=== PATIENT | female | born 1930 | race Caucasian/White ===

== ENCOUNTER 2017-03-05 20:04 | Observation (INO) | payer MEDICARE, OTHER ==
[2017-03-05] MEDS ORDERED: Albuterol/Ipratropium 3.0-0.5 MG/3 ML Neb Soln NEB ONE (20:22)
[2017-03-05] MEDS ORDERED: methylPREDNISolone Sodium Succinate 125 MG/2 ML SDV IV ONE (20:22)
[2017-03-05] MEDS ORDERED: Sodium Chloride 0.9% 300 ML IV ONE (20:30)
[2017-03-05] MEDS: Sodium Chloride 0.9% 10 ML Syringe FLUSH PRN (20:45)
[2017-03-05 21:20] LABS: CHLORIDE,CL 106 mmol/L (98-107); SODIUM,NA 140 mmol/L (136-145)
[2017-03-05] MEDS ORDERED: Levofloxacin/Dextrose 5%-Water 500 MG in Premix Bag 1 BAG IV ONE (21:37)
[2017-03-05] MEDS ORDERED: Albuterol 0.083% 2.5 MG/3 ML Neb Soln NEB PRN (21:52)
[2017-03-05] MEDS: Albuterol/Ipratropium 3.0-0.5 MG/3 ML Neb Soln NEB SCH (22:34)
[2017-03-06] MEDS: Albuterol/Ipratropium 3.0-0.5 MG/3 ML Neb Soln NEB SCH ×4 (01:20→17:59)
[2017-03-06] MEDS: methylPREDNISolone Sodium Succinate 40 MG/1 ML SDV IVPUSH SCH ×3 (05:04→20:54)
[2017-03-06] MEDS: Sodium Chloride 0.9% 10 ML Syringe FLUSH PRN ×2 (05:06→07:40)
[2017-03-06] MEDS ORDERED: Acetaminophen/HYDROcodone 325-5 MG Tab PO PRN (07:54)
[2017-03-06] MEDS ORDERED: Sodium Chloride 0.9% 1,000 ML IV ONE (08:53)
[2017-03-06] MEDS: Calcium Carbonate 750 MG Tab.Chew PO SCH ×2 (09:03→20:55)
[2017-03-06] MEDS: Docusate Sodium 100 MG Cap PO SCH (09:03)
[2017-03-06] MEDS: Sodium Chloride 0.9% 1,000 ML IV SCH ×2 (09:04→16:31)
[2017-03-06] MEDS: Enoxaparin 30 MG/0.3 ML Syringe SUBCUT SCH (09:09)
--- NOTE | 2017-03-06 10:54 | PN ---
Progress Note for JACQUE ENRIQUEZ Date:03/06/2017 Room #: VM.205 SUBJECTIVE: Randa was hospitalized last evening with community-acquired pneumonia. The patient also has a history of asthma and has been experiencing increased work of breathing and chest tightness. The patient was started on DuoNeb and albuterol breathing treatments, and was started on IV Levaquin. She states that this morning she is feeling about the same. She states that her cough is less productive. She does complain of some mild right anterolateral respirophasic chest discomfort which is new. PHYSICAL EXAMINATION: General: This is an 86-year-old female patient. No acute distress. Vital signs: This morning, blood pressure is 142/73, heart rate is 83, temperature is 36.7, respiratory rate 18, O2 saturations 97% on room air. Skin: Warm, pink, and dry. HEENT: Head is normocephalic, atraumatic. Mouth, oral mucosa is moist. Lungs: Diminished particularly on left side. Heart: Regular rate and rhythm. Abdomen: Soft and nontender. There is no hepatosplenomegaly noted. There is no masses noted. Extremities: Without edema. Neurologic: The patient is alert, oriented. Answers all questions appropriately. Her speech is fluent. Her gait is within normal limits. LABORATORY DATA: Repeat labs today revealed elevation in her lactic acid to 4.5 from 4.3. Her creatinine also elevated to 1.4 from 1.2. Her white count remained stable at 5.5. Her electrolytes all remained within normal limits. ASSESSMENT: Community-acquired pneumonia. PLAN: I am going to start the patient on normal saline at 125 an hour. She does appear to be a bit dehydrated and her labs reflect this as well. Initially was thought that the patient may be discharged this morning, but she will be kept another day. Subsequently, we will start her on Lovenox at 30 mg per day, the renally adjusted dose for DVT prophylaxis. Continue with flutter valve and incentive spirometry. I advised her to ambulate as much as possible to improve tidal volume and subsequently pulmonary toilet. We will reevaluate in the morning to determine if the patient meets criteria for discharge. If not, the patient will be likely made acute. The patient is a full code. MWK: 03/06/2017 09:00:40 MODL: 03/06/2017 10:46:36 /[id number]
[2017-03-06] MEDS ORDERED: Mirtazapine 15 MG Tab PO SCH (20:00)
[2017-03-06] MEDS ORDERED: Pramipexole 0.5 MG Tab PO SCH (20:00)
[2017-03-06] MEDS ORDERED: Aspirin 81 MG Tab.EC PO SCH (20:00)
[2017-03-06] MEDS ORDERED: Carbidopa/Levodopa 10-100 MG Tab PO SCH (20:00)
[2017-03-06] MEDS ORDERED: Levofloxacin/Dextrose 5%-Water 250 MG in Premix Bag 1 BAG IV SCH (20:00)
[2017-03-07] MEDS: Albuterol/Ipratropium 3.0-0.5 MG/3 ML Neb Soln NEB SCH ×2 (01:32→07:20)
[2017-03-07] MEDS: Sodium Chloride 0.9% 1,000 ML IV SCH (01:35)
[2017-03-07] MEDS ORDERED: Omeprazole 20 MG Cap.CR PO SCH ×2 (01:45→20:00)
[2017-03-07] MEDS: methylPREDNISolone Sodium Succinate 40 MG/1 ML SDV IVPUSH SCH (04:57)
[2017-03-07 06:25] VITALS: BP 127/52
[2017-03-07] MEDS: Calcium Carbonate 750 MG Tab.Chew PO SCH (07:57)
[2017-03-07] MEDS: Docusate Sodium 100 MG Cap PO SCH (07:57)
[2017-03-07] MEDS: Enoxaparin 30 MG/0.3 ML Syringe SUBCUT SCH (07:57)
--- NOTE | 2017-03-07 08:32 | DISCH ---
ADMITTING DIAGNOSES: 1. Community-acquired pneumonia. 2. Asthma exacerbation. DISCHARGING DIAGNOSES: 1. Community-acquired pneumonia. 2. Asthma exacerbation. HISTORY: Randa is feeling much better. She was admitted on 03/05/2017 with increased cough and work of breathing. At that time, she was started on IV Levaquin in the emergency room and started on IV Solu-Medrol. She does have a history of asthma and currently does take albuterol for this. She has been receiving DuoNeb and albuterol breathing treatments since being admitted. She has been on IV Solu-Medrol as well since being admitted. She does have a history of stage 3 chronic kidney disease, so her Levaquin dose has been renally adjusted. Overall, she states she is feeling much better and wishes to be discharged home today. Her white count is mildly elevated this morning at 16.9. It was 5.5 yesterday. Her lactic acid, however, is down to 3.7. It was 4.5 yesterday. HOSPITAL COURSE: Again, the patient states she is feeling much better and wishes to be discharged. She states that her cough is minimal and states that it is nonproductive. She has been afebrile. DISCHARGE PHYSICAL EXAMINATION: General: An 86-year-old female patient, in no acute distress. Vital Signs: Blood pressure is 127/52, pulse rate is 83, temperature is 36.9, O2 saturations 95%, respiratory rate is 16. Skin: Warm, pink, and dry. Lungs: Clear throughout. Heart: Regular rate and rhythm. Abdomen: Soft and nontender. There is no hepatosplenomegaly or masses noted. DISCHARGE MEDICATIONS: Continue with home medications. Please see MAR. We will start her on Levaquin 250 mg once daily for 10 days. Also, we will start her on prednisone 40 mg daily for 5 days. Continue with albuterol inhaler 2 puffs every 4-6 hours as needed for cough. Follow up with Yanci Guillen in 5-7 days. MWK: 03/07/2017 07:51:15 MODL: 03/07/2017 08:24:39 /[id number]
--- NOTE | 2017-03-07 08:43 | ER ---
Date of Service: 03/05/2017 SUBJECTIVE: Randa presents to the emergency room with complaints of dyspnea and fatigue. The patient states that she has been experiencing the shortness of breath for approximately 2 weeks. She states that the cough is occasionally productive of yellowish sputum. The patient states that she has not been feeling well. She does have a history of asthma and states that she had previously been on Breo, an inhaled long- acting beta agonists/inhaled corticosteroid, but she states that she was responding poorly to this medication and requested that this medication be stopped. She states that she does have an albuterol inhaler that she has been using every few hours for the dyspnea. The patient states that her cough is productive of yellowish sputum. She denies any hemoptysis. PAST MEDICAL HISTORY: 1. History of pneumonia. 2. Asthma. 3. Chronic constipation. 4. Colon polyps. 5. GERD. 6. Appendectomy. 7. Hysterectomy. 8. Breast lumpectomy. 9. Osteoporosis. 10.Restless legs syndrome. 11.Osteopenia. 12.Anxiety. 13.Depression. MEDICATIONS: 1. Albuterol. 2. Aspirin. 3. Extra-strength Tums. 4. Sinemet. 5. Colace. 6. Remeron. 7. Omeprazole. 8. Mirapex. ALLERGIES: 1. Fish containing products. 2. Atorvastatin. 3. Codeine. 4. Sulfa. REVIEW OF SYSTEMS: General: No fever or chills. HEENT: No sore throat, rhinorrhea or congestion. Respiratory: Positive for shortness of breath and productive cough. Cardiac: Denies any substernal chest pain, but states she is experiencing some chest tightness. GI: No nausea, vomiting, or diarrhea. No melena, hematochezia, or hematemesis. : Denies any dysuria. Musculoskeletal: No myalgias or arthralgias. Neurologic: No fainting, blackouts, or lightheadedness. PHYSICAL EXAMINATION: General: This is an 86-year-old female, who is in no acute distress. Vital signs: Blood pressure is 142/73, heart rate is 83, temp is 36.7, respiratory rate is 18, O2 saturations 93% on room air. Skin: Warm, pink, and dry. HEENT. Head is normocephalic, atraumatic. Eyes, PERRLA. Extraocular movements are intact. Ears, TMs are clear. Mouth, oral mucosa is moist. Lungs: Diminished throughout with mild wheezing. She is diminished primarily in the left lung base. Heart: Regular rate and rhythm. Abdomen: Soft, nontender. There is no hepatosplenomegaly noted. There is no masses noted. Extremities: Without edema. Neurologic: The patient is alert, oriented. Answers all questions appropriately. Her speech is fluent. Her gait is within normal limits. DIAGNOSTIC DATA: EKG was obtained showing no acute ST or T-wave abnormalities. Portable chest x-ray was obtained. She did have evidence of bilateral infiltrates. LABORATORY DATA: WBC is 7.1, hemoglobin is 13.1, platelets are 23. Coag; PT is 9.9, INR is 0.9. Chemistry; sodium is 140, potassium is 3.7, chloride is 106, bicarb is 23, BUN is 11, creatinine is 1.2. Creatinine clearance is 30.92. GFR is 42. Glucose is 184. Lactic acid is 4.3, calcium is 8.9, corrected calcium is 9.3, total bilirubin is 0.3. AST is 16, ALT is 15, alkaline phosphatase is 117. CK-MB is 0.8. Troponin is less than 0.017. C-reactive protein is less than 0.2. BNP is 226. EMERGENCY ROOM COURSE: IV access was established. She was given Levaquin 500 mg IV. She was given Solu-Medrol 125 mg IV and she was given a DuoNeb breathing treatment. She did feel significantly improved after the breathing treatment. She remained stable under my care in the emergency room. ASSESSMENT: 1. Community-acquired pneumonia. 2. Acute asthma exacerbation. PLAN: The patient will be admitted on observation status. She is a code level 1. We will continue with Levaquin starting at 250 mg once daily, Solu-Medrol 40 mg 3 times daily for the asthma exacerbation, DuoNeb breathing treatments 1 every 4 hours on a schedule and albuterol 2.5 mg nebulized every 4-6 hours as needed. I did discuss this case with Carmen Guillen and she felt that the patient could be admitted on observation status. All questions were answered. MWK: 03/06/2017 12:55:19 MODL: 03/06/2017 13:25:13 /[id number]
--- NOTE | 2017-03-10 09:15 | ER ---
Date of Service: 03/05/2017 ADDENDUM: The patient's ER note may be used as her admission H and P. MWK: 03/09/2017 13:05:42 MODL: 03/09/2017 19:25:39 /[id number]
== END 2017-03-07 09:30 | disposition home or self-care (01) ==
LOC: VM.ED 20:04 → INTOOBSV 21:45 → VM.MS 21:45
PROVIDERS: ADMIT Physician Assistant; ATTEND Physician Assistant
DX: J18.9 Pneumonia, unspecified organism (principal); J45.901 Unspecified asthma with (acute) exacerbation; N18.3 Chronic kidney disease, stage 3 (moderate)
CPT/HCPCS: 36415; 71020; 80053; 82550; 82553; 83605; 83880; 84484; 85025; 85027; 85610; 86140; 87040; 93005; 94640; 94760; 96361; 96365; 96366; 96372; 96374; 96375; 96376; 99217; 99220; 99226; 99285; A9270; G0378; J1650; J1956; J2920; J2930; J7030; J7050

== ENCOUNTER 2017-04-28 06:50 | Day surgery (SDC) | payer MEDICARE, OTHER ==
[~2017-04-28 06:50] MED LIST: Lactated Ringers 1,000 ML IV SCH
[2017-04-28] MEDS ORDERED: fentaNYL 100 MCG/2 ML SDV ONE (08:05)
[2017-04-28] MEDS ORDERED: Propofol 200 MG/20 ML SDV ONE (08:05)
--- NOTE | 2017-04-28 10:16 | OR ---
SURGERY DATE: 04/28/2017. REFERRING PROVIDER: Yanci Guillen PA-C. PREOPERATIVE DIAGNOSES: 1. Resistant gastroesophageal reflux disease along with achy epigastric pain. The patient was recently changed from omeprazole to pantoprazole. She is on chronic prednisone as well as aspirin 81 mg daily. 2. 1 episode of dysphagia recently. POSTOPERATIVE DIAGNOSES: 1. About a 3 cm sliding-type hiatal hernia without any evidence of inflammation or stricture. 2. Few scattered gastric polyps, largest being about 1 cm in size which was biopsied multiple times. This was quite soft in nature. 3. Antral biopsies taken for path and H. pylori. PROCEDURES: Esophagogastroduodenoscopy with cold biopsies x2 sites. SURGEON: Jean Marie Gar M.D. ANESTHESIA: Monitored anesthesia care. Randa is an 86-year-old female who was brought to the endoscope suite after discussion of risks and benefits (including but not limited to reaction to medication, bleeding, infection, aspiration, perforation). Informed consent was obtained for monitored anesthesia care and esophagogastroduodenoscopy along with possible biopsy and/or dilatation. Pre-procedure exam including oral cavity was unremarkable. IV, oxygen, and monitors were placed. Patient was placed in the left lateral position and sedation was administered. A bite block was placed gently and scope lightly lubricated and passed through the bite block and over the tongue. Hypopharynx and vocal cords were visualized and unremarkable. Scope was passed through the cricopharynx and into the esophagus. The scope was then passed through the distal esophagus and the GE junction was visualized and photographed. The GE junction was remarkable for about a 3 cm sliding-type hiatal hernia. Vocal cords were visualized and unremarkable. The scope was advanced into the stomach and gastric sullivan was suctioned. Pylorus was identified and intubated and then the scope was advanced to the third portion of the duodenum. The second and third portions of the duodenum were unremarkable. The duodenal bulb was visualized and 2nd and 3rd portions of duodenum were unremarkable. Duodenal bulb visualized unremarkable. The scope was brought back into the stomach. The pylorus and the antrum were unremarkable. Cold biopsy x2 bites was taken from this area to check for H. pylori and sent for path. Biopsies for H. pylori and Path were obtained from antrum. The scope was retroflexed to visualize the angularis, fundus, body, and cardia. These were remarkable for a few scattered gastric polyps, the largest being about 1 cm in size and soft. This was biopsied multiple times and nearly removed completely. The stomach was desufflated of air and then the scope was slowly withdrawn, and the esophagus was closely visualized during withdrawal all the way into the posterior pharynx. In the upper esophagus there was an area of heterotopic type mucosa. Cold biopsy x2 bites was taken of this area and sent for path. The patient tolerated the procedure well and went to recovery in stable condition. The patient was monitored until at baseline status. Findings and discharge instructions were reviewed and the patient was discharged in good condition. COMPLICATIONS: None. TOTAL TIME: 11 minutes. ESTIMATED BLOOD LOSS: About 2 mL. RECOMMENDATIONS/FOLLOW-UP: We will await results of path report to determine the need for any followup. Recommend patient continue on her pantoprazole given her chronic prednisone use as well as aspirin. I would like to kindly thank Yanci Guillen for this referral. DMB: 04/28/2017 09:26:22 MODL: 04/28/2017 10:00:39 /[id number]
[2017-04-28 10:21] VITALS: BP 127/56
== END 2017-04-28 10:35 | disposition home or self-care (01) ==
LOC: VM.SDS 06:50
PROVIDERS: ATTEND Family Medicine
DX: K31.7 Polyp of stomach and duodenum (principal); K44.9 Diaphragmatic hernia without obstruction or gangrene; F43.23 Adjustment disorder with mixed anxiety and depressed mood; E78.5 Hyperlipidemia, unspecified; K21.9 Gastro-esophageal reflux disease without esophagitis; J45.20 Mild intermittent asthma, uncomplicated; Z88.2 Allergy status to sulfonamides; Z88.8 Allergy status to other drugs, medicaments and biological substances; Z91.013 Allergy to seafood; Z79.82 Long term (current) use of aspirin; Z79.2 Long term (current) use of antibiotics; Z79.899 Other long term (current) drug therapy; Z90.49 Acquired absence of other specified parts of digestive tract; Z98.890 Other specified postprocedural states
CPT/HCPCS: 00740; 43239; J2704; J3010; J7120; 88305

== ENCOUNTER 2017-09-10 10:31 | Inpatient (IN) | payer MEDICARE, OTHER ==
[2017-09-10] MEDS ORDERED: Albuterol/Ipratropium 3.0-0.5 MG/3 ML Neb Soln NEB ONE ×2 (10:39→12:30)
[2017-09-10] MEDS ORDERED: Sodium Chloride 0.9% 10 ML Syringe FLUSH PRN ×2 (11:03→13:29)
[2017-09-10] MEDS ORDERED: cefTRIAXone 1 GM Vial IVPUSH ONE ×2 (11:04→11:44)
--- NOTE | 2017-09-10 11:09 | EDM.PDOC ---
ED HPI GENERAL MEDICAL PROBLEM - General Chief Complaint: Respiratory Problem Stated Complaint: FLU LIKE SYMPTOMS Time Seen by Provider: 09/10/17 10:31 Source of Information: Reports: Patient History Limitations: Reports: No Limitations - History of Present Illness INITIAL COMMENTS - FREE TEXT/NARRATIVE: Patient comes into the emergency department with a one-week history of chest congestion, cough, shortness of breath,fatigue, and malaise. She states she has difficulty ambulating because she becomes short of breath very quickly which has just begun in the past 2 days. She has an inhaler that she has at home that she is using frequently (multiple times a day) to help with the congestion, wheezing, and SOB. She states she called the clinic this past week for an appointment and she was told to wait a few more days to ensure it was not a viral etiology. Patient comes in today with worsening of the symptoms. Denies bodyaches, n/v, chest pain, dizziness, lightheadedness (unless she is coughing) , or swollen extremities. Onset: Gradual Onset Date: 09/03/17 Duration: Getting Worse Worsens with: Reports: Movement Associated Symptoms: Reports: Cough, cough w sputum, Loss of Appetite, Malaise, Shortness of Breath, Weakness. Denies: Diaphoresis, Fever/Chills, Nausea/ Vomiting, Syncope - Related Data Allergies Allergy/AdvReac Type Severity Reaction Status Date / Time Fish Containing Products Allergy Nausea Verified 09/10/17 10:58 atorvastatin calcium AdvReac Body Aches Verified 09/10/17 10:58 [From Lipitor] codeine AdvReac Change Verified 09/10/17 10:58 Mental Status Sulfa (Sulfonamide AdvReac Nausea Verified 09/10/17 10:58 Antibiotics) Home Meds: Home Meds Carbidopa/Levodopa [Sinemet 10-100 mg] 1 tab PO BEDTIME 09/10/15 [History] Ibuprofen 400 mg PO Q4HR PRN 09/10/15 [History] Meclizine HCl [Antivert] 25 mg PO Q4HR PRN 09/10/15 [History] Calcium/Magnesium/Zinc [Calcium & Magnesium plus Zinc] 2 tab PO DAILY 03/05/17 [ History] Pramipexole [Mirapex] 1 mg PO DAILY 03/05/17 [History] Propylene Glycol [Systane Balance] 1 drop EYEBOTH ASDIRECTED PRN 03/05/17 [ History] predniSONE 5 mg PO DAILY 03/05/17 [History] Docusate Sodium [Colace] 100 mg PO DAILY 03/06/17 [History] Hydrocodone/Acetaminophen [[place] 5-325] 1 tab PO BEDTIME PRN 03/06/17 [History] Aspirin [Halfprin] 81 mg PO BEDTIME tab.ec 03/07/17 [Rx] Non-Formulary Medication [NF Drug] 1 tab PO DAILY PRN 04/25/17 [History] Albuterol [Ventolin HFA] 2 puff IH Q4H PRN 09/10/17 [History] Mirtazapine [Mirtazapine] 15 mg PO BEDTIME 09/10/17 [History] Omeprazole [Omeprazole] 1 cap PO DAILY 09/10/17 [History] Past Medical History HEENT History: Reports: Cataract, Hard of Hearing, Impaired Vision, Other (See Below) Other HEENT History: lesion of lower eyelid. labyrinthitis Cardiovascular History: Reports: High Cholesterol Respiratory History: Reports: Asthma Other Respiratory History: HX OF PNUEMONIA Gastrointestinal History: Reports: Chronic Constipation, GERD, Other (See Below) Other Gastrointestinal History: taste sense altered. hepatitis A Genitourinary History: Reports: None [employer] History: Reports: None Musculoskeletal History: Reports: Back Pain, Chronic, Osteoarthritis, Other ( See Below) Other Musculoskeletal History: arthralgia of multiple joints. restless leg syndrome. hx right hand numbness. myalgia and myositis Neurological History: Reports: None Psychiatric History: Reports: Anxiety, Depression Endocrine/Metabolic History: Reports: Osteopenia Hematologic History: Reports: None Immunologic History: Reports: None Oncologic (Cancer) History: Reports: Basal Cell Carcinoma, Breast Other Oncologic History: SKIN CA ON BACK Dermatologic History: Reports: None - Past Surgical History Head Surgeries/Procedures: Reports: None HEENT Surgical History: Reports: Cataract Surgery, Tonsillectomy Cardiovascular Surgical History: Reports: None Respiratory Surgical History: Reports: None GI Surgical History: Reports: Appendectomy, Colonoscopy Female Surgical History: Reports: Hysterectomy, Other (See Below) Other Female Surgeries/Procedures: breast lumpectomy Endocrine Surgical History: Reports: Thyroid Biopsy Neurological Surgical History: Reports: None Musculoskeletal Surgical History: Reports: Carpal Tunnel, Other (See Below) Other Musculoskeletal Surgeries/Procedures:: right 3rd digit & left thumb trigger finger release Oncologic Surgical History: Reports: Biopsy of Breast, Lumpectomy Dermatological Surgical History: Reports: None Social & Family History - Family History Family Medical History: Noncontributory - Tobacco Use Smoking Status *Q: Never Smoker Second Hand Smoke Exposure: No - Caffeine Use Caffeine Use: Reports: Coffee - Alcohol Use Days Per Week of Alcohol Use: 0 - Recreational Drug Use Recreational Drug Use: No ED ROS GENERAL - Review of Systems Review Of Systems: See Below Constitutional: Reports: Chills, Malaise, Fatigue, Decreased Appetite. Denies: Weakness, Night Sweats, Diaphoresis, Weight Loss HEENT: Reports: No Symptoms Respiratory: Reports: Shortness of Breath, Wheezing, Cough, Sputum. Denies: Pleuritic Chest Pain, Hemoptysis Cardiovascular: Reports: No Symptoms Endocrine: Reports: No Symptoms GI/Abdominal: Reports: No Symptoms : Reports: No Symptoms Musculoskeletal: Reports: No Symptoms Skin: Reports: No Symptoms Neurological: Reports: No Symptoms Psychiatric: Reports: No Symptoms Hematologic/Lymphatic: Reports: No Symptoms, Other Immunologic: Reports: No Symptoms ED EXAM, GENERAL - Physical Exam Exam: See Below Exam Limited By: No Limitations General Appearance: Alert, WD/WN, Mild Distress Throat/Mouth: Normal Inspection, Normal Lips Head: Atraumatic, Normocephalic Respiratory/Chest: Respiratory Distress (unable to speak full sentences. 3-4 words. ), Decreased Breath Sounds, Wheezing (bilateral mid and lower base wheezing ), Accessory Muscle Use (resp rate 20-24). No: Stridor, Pleural Rub, Prolonged Expiration Cardiovascular: Normal Peripheral Pulses, No Edema, No Gallop, No JVD, No Murmur , No Rub, Tachycardia Peripheral Pulses: 2+: Radial (L), Radial (R), Dorsalis Pedis (L), Dorsalis Pedis (R) GI/Abdominal: Normal Bowel Sounds, Soft, Non-Tender, No Distention, No Abnormal Bruit Extremities: Normal Inspection, Normal Range of Motion, Non-Tender, No Pedal Edema, Normal Capillary Refill. No: Slow Capillary Refill, Joint Swelling, Limited Range of Motion, Pallor Neurological: Alert, Oriented, CN II-XII Intact Psychiatric: Normal Affect, Normal Mood Skin Exam: Warm, Dry, Intact, Normal Color, No Rash EKG INTERPRETATION Rhythm: NSR QRS: RBBB Comparison: No Change Course - Vital Signs Last Recorded V/S: Last Vital Signs Temp 36.6 C 09/10/17 13:03 Pulse 91 09/10/17 13:03 Resp 18 09/10/17 13:03 BP 146/47 H 09/10/17 13:03 Pulse Ox 98 09/10/17 13:03 - Orders/Labs/Meds Orders: Active Orders 24 hr Category Date Time Status Admission Status [Patient Status] [ADT] Routine ADT 09/10/17 12:46 Active EKG 12 Lead [EKG Documentation Completion] [RC] STAT Care 09/10/17 10:40 Active RT Aerosol Therapy [RC] ASDIRECTED Care 09/10/17 10:40 Active RT Aerosol Therapy [RC] ASDIRECTED Care 09/10/17 11:32 Active Chest 2V [CR] Stat Exams 09/10/17 10:40 Taken CULTURE BLOOD [BC] Stat Lab 09/10/17 10:50 Stop Req CULTURE BLOOD [BC] Stat Lab 09/10/17 11:00 Stop Req Sodium Chloride 0.9% [Saline Flush] Med 09/10/17 11:03 Active 10 ml FLUSH ASDIRECTED PRN Peripheral IV Insertion Adult [OM.PC] Routine Oth 09/10/17 11:03 Ordered Medication Orders Sodium Chloride (Saline Flush) 10 ml FLUSH ASDIRECTED PRN PRN Reason: Keep Vein Open Labs: Laboratory Tests 09/10/17 09/10/17 09/10/17 Range/Units 10:50 10:50 10:50 WBC 6.5 (4.0-10.0) x10^3/uL RBC 4.69 (4.00-5.50) x10^6/uL Hgb 14.1 D (12.0-16.0) g/dL Hct 42.9 (33.0-47.0) % MCV 91.5 (78.0-93.0) fL MCH 30.1 (26.0-32.0) pg MCHC 32.9 (32.0-36.0) g/dL RDW Coeff of Sofy 13.3 (10.0-15.0) % Plt Count 218 (130-400) x10^3/uL Neut % (Auto) 55.6 (50.0-80.0) % Lymph % (Auto) 34.7 (25.0-50.0) % [place] % (Auto) 6.6 (2.0-11.0) % Eos % (Auto) 2.8 (0.0-4.0) % Baso % (Auto) 0.3 (0.2-1.2) % Sodium 142 (136-145) mmol/L Potassium 3.8 (3.5-5.1) mmol/L Chloride 106 (98-107) mmol/L Carbon Dioxide 22 (21-32) mmol/L BUN 19 H (7-18) mg/dL Creatinine 1.3 H (0.55-1.02) mg/dL Est Cr Clr Drug Dosing 27.46 mL/min Estimated GFR (MDRD) 39 Glucose 138 H (74-106) mg/dL Lactic Acid 4.5 H* (0.4-2.0) mmol/L Calcium 9.1 (8.5-10.1) mg/dL Corrected Calcium 9.18 (8.5-10.1) mg/dL Total Bilirubin 0.5 (0.2-1.0) mg/dL AST 22 (15-37) U/L ALT 26 (14-59) U/L Alkaline Phosphatase 117 H (46-116) U/L NT-Pro-B Natriuret Pep (<=450) pg/mL Total Protein 7.5 (6.4-8.2) g/dL Albumin 3.9 (3.4-5.0) g/dL Globulin 3.6 Albumin/Globulin Ratio 1.08 /09/25 Range/Units 11:00 WBC (4.0-10.0) x10^3/uL RBC (4.00-5.50) x10^6/uL Hgb (12.0-16.0) g/dL Hct (33.0-47.0) % MCV (78.0-93.0) fL MCH (26.0-32.0) pg MCHC (32.0-36.0) g/dL RDW Coeff of Sofy (10.0-15.0) % Plt Count (130-400) x10^3/uL Neut % (Auto) (50.0-80.0) % Lymph % (Auto) (25.0-50.0) % [place] % (Auto) (2.0-11.0) % Eos % (Auto) (0.0-4.0) % Baso % (Auto) (0.2-1.2) % Sodium (136-145) mmol/L Potassium (3.5-5.1) mmol/L Chloride (98-107) mmol/L Carbon Dioxide (21-32) mmol/L BUN (7-18) mg/dL Creatinine (0.55-1.02) mg/dL Est Cr Clr Drug Dosing mL/min Estimated GFR (MDRD) Glucose (74-106) mg/dL Lactic Acid (0.4-2.0) mmol/L Calcium (8.5-10.1) mg/dL Corrected Calcium (8.5-10.1) mg/dL Total Bilirubin (0.2-1.0) mg/dL AST (15-37) U/L ALT (14-59) U/L Alkaline Phosphatase (46-116) U/L NT-Pro-B Natriuret Pep 177 (<=450) pg/mL Total Protein (6.4-8.2) g/dL Albumin (3.4-5.0) g/dL Globulin Albumin/Globulin Ratio Meds: Medications Generic Name Dose Route Start Last Admin Trade Name Freq PRN Reason Stop Dose Admin Sodium Chloride 10 ml 09/10/17 11:03 Saline Flush FLUSH ASDIRECTED PRN Keep Vein Open Discontinued Medications Generic Name Dose Route Start Last Admin Trade Name Freq PRN Reason Stop Dose Admin Albuterol/Ipratropium 3 ml 09/10/17 10:39 09/10/17 10:44 Duoneb 3.0-0.5 Mg/3 Ml NEB 09/10/17 10:40 3 ml ONETIME ONE Administration Albuterol/Ipratropium 3 ml 09/10/17 12:30 09/10/17 12:26 Duoneb 3.0-0.5 Mg/3 Ml NEB 09/10/17 12:31 3 ml ONETIME ONE Administration Ceftriaxone Sodium 1 gm 09/10/17 11:04 09/10/17 11:21 Rocephin IVPUSH 09/10/17 11:05 1 gm ONETIME ONE Administration Ceftriaxone Sodium 1 gm 09/10/17 11:44 Rocephin IVPUSH 09/10/17 11:45 ONETIME ONE Vancomycin HCl 1,500 mg/ 250 mls @ 167 mls/hr 09/10/17 11:03 09/10/17 11:44 Sodium Chloride IV 09/10/17 12:32 Not Given ONETIME ONE Methylprednisolone Sodium Succinate 125 mg 09/10/17 11:54 09/10/17 12:20 Solu-Medrol IVPUSH 09/10/17 11:55 125 mg ONETIME ONE Administration Departure - Departure Time of Disposition: 13:10 Disposition: Admitted As Inpatient 64 Clinical Impression: Hypoxemia, Wheezing, Respiratory distress, Hypoxia - Discharge Information - Problem List & Annotations (1) Hypoxia SNOMED Code(s): 003638145 Code(s): R09.02 - HYPOXEMIA Status: Acute Current Visit: Yes (2) Wheezing SNOMED Code(s): 64325113 Code(s): R06.2 - WHEEZING Status: Acute Current Visit: Yes (3) Respiratory distress SNOMED Code(s): 249535162 Code(s): R06.03 - ACUTE RESPIRATORY DISTRESS Status: Acute Current Visit : Yes - Problem List Review Problem List Initiated/Reviewed/Updated: Yes - My Orders Last 24 Hours: My Active Orders 09/10/17 10:40 EKG 12 Lead [EKG Documentation Completion] [RC] STAT RT Aerosol Therapy [RC] ASDIRECTED Chest 2V [CR] Stat 09/10/17 10:50 CULTURE BLOOD [BC] Stat 09/10/17 11:00 CULTURE BLOOD [BC] Stat 09/10/17 11:03 Sodium Chloride 0.9% [Saline Flush] 10 ml FLUSH ASDIRECTED PRN Peripheral IV Insertion Adult [OM.PC] Routine 09/10/17 11:32 RT Aerosol Therapy [RC] ASDIRECTED 09/10/17 12:46 Admission Status [Patient Status] [ADT] Routine - Assessment/Plan Admission H&P: Please use this note as an admission H&P Last 24 Hours: My Active Orders 09/10/17 10:40 EKG 12 Lead [EKG Documentation Completion] [RC] STAT RT Aerosol Therapy [RC] ASDIRECTED Chest 2V [CR] Stat 09/10/17 10:50 CULTURE BLOOD [BC] Stat 09/10/17 11:00 CULTURE BLOOD [BC] Stat 09/10/17 11:03 Sodium Chloride 0.9% [Saline Flush] 10 ml FLUSH ASDIRECTED PRN Peripheral IV Insertion Adult [OM.PC] Routine 09/10/17 11:32 RT Aerosol Therapy [RC] ASDIRECTED 09/10/17 12:46 Admission Status [Patient Status] [ADT] Routine Assessment:: Assessment: Wheezing, resp distress, tachyneic Re-assessment post duoneb. -Mild wheezing noted. Able to speak full sentences. Resp rate 18, O2 92-94% when awake and 90-94% when sleeping. Pt meets sepsis criteria because of heart rate and respiratory rate however due to clinical and lab findings she is appears to not be septic but exhibiting signs of COPD/emphysematous changes. Will give a dose of steroids in the ER and a second Duoneb and reassess.. Plan: Assessment: wheezing, SOB, Respiratory distress (O2 sat 92-94%, Rate 24-28 before to Duoneb) Plan: 1. Labs completed and reviewed with the pt 2. Xray completed and reviewed with the pt 3. Start IV in ER 4. Duoneb treatment x 2 in ER due to wheezing and Resp distress 5. Will admit to observation for hypoxia and wheezing. Summary: Patient comes into the emergency department today with respiratory distress, hypoxia, shortness of breath, and wheezing. Patient had labs completed, x-ray completed, duo nebs 2, soulmedrol, and Rocephin. Patient is resting comfortably on the bedside. However oxygen saturation is maintained around 90-93 % on room air. Patient still has expiratory wheezes along both bases. X-ray was negative for infectious process however did show emphysematous changes. Patient does have a history of secondhand smoke outliving in the same house conditions with someone who is a smoker. Infectious agents within the labs came back negative however lactic acid was 4. Patient will be admitted to observation for further monitoring and management of respiratory distress related to decreased oxygen saturation and wheezing. Patient was also given a gram of Rocephin emergency department. Patient will be admitted to the hospital overnight and will be given steroids along with duo nebs to help reduce the bronchial spasm and wheezing the patient is incurring.
[2017-09-10] MEDS ORDERED: methylPREDNISolone Sodium Succinate 125 MG/2 ML SDV IVPUSH ONE (11:54)
[2017-09-10] MEDS ORDERED: Albuterol/Ipratropium 3.0-0.5 MG/3 ML Neb Soln NEB PRN (13:29)
[2017-09-10] MEDS ORDERED: Meclizine 25 MG Tab PO PRN (13:59)
[2017-09-10] MEDS: Sodium Chloride 0.9% 1,000 ML IV SCH ×2 (14:15→22:12)
[2017-09-10] MEDS ORDERED: Ibuprofen 200 MG Tab PO PRN (14:17)
[2017-09-10] MEDS ORDERED: Dextran 70/Hypromellose/PF Ophth Soln 0.9 ML UD EYEBOTH PRN (14:30)
[2017-09-10] MEDS: Albuterol/Ipratropium 3.0-0.5 MG/3 ML Neb Soln NEB SCH ×3 (14:33→22:34)
[2017-09-10] MEDS: Benzonatate 100 MG Cap PO PRN (14:39)
[2017-09-10] MEDS: Mirtazapine 15 MG Tab PO SCH (20:19)
[2017-09-10] MEDS: Aspirin 81 MG Tab.EC PO SCH (20:19)
[2017-09-10] MEDS: Carbidopa/Levodopa 10-100 MG Tab PO SCH (20:19)
[2017-09-11] MEDS: Acetaminophen/HYDROcodone 325-5 MG Tab PO PRN (00:16)
[2017-09-11] MEDS: Albuterol/Ipratropium 3.0-0.5 MG/3 ML Neb Soln NEB SCH ×6 (02:23→22:53)
[2017-09-11] MEDS: Sodium Chloride 0.9% 1,000 ML IV SCH ×3 (06:38→22:30)
[2017-09-11] MEDS: Omeprazole 20 MG Cap.CR PO SCH (06:42)
[2017-09-11] MEDS: Docusate Sodium 100 MG Cap PO SCH (07:26)
[2017-09-11] MEDS: predniSONE 5 MG Tab PO SCH (07:26)
[2017-09-11] MEDS: predniSONE 20 MG Tab PO SCH (07:26)
[2017-09-11] MEDS ORDERED: Pramipexole 0.5 MG Tab PO SCH (08:00)
[2017-09-11] MEDS: Benzonatate 100 MG Cap PO PRN (08:52)
[2017-09-11] MEDS ORDERED: Doxycycline 100 MG Cap PO ONE (09:53)
[2017-09-11] MEDS ORDERED: cefTRIAXone 1 GM Vial IVPUSH ONE (09:54)
[2017-09-11] MEDS: Tiotropium Inhaler 18 MCG Inhalation Powder Cap Kit of 5 INH SCH (10:18)
--- NOTE | 2017-09-11 10:35 | PCM.PN ---
- General Info Date of Service: 09/11/17 Admission Dx/Problem (Free Text): Admitted for shortness of breath, cough, chest congestion, fatigue for 1 week. Initially met and was worked up according to sepsis guidelines. Functional Status: Reports: Pain Controlled, Tolerating Diet, Ambulating, Urinating. Denies: New Symptoms - Review of Systems General: Reports: No Symptoms HEENT: Reports: No Symptoms Pulmonary: Reports: Shortness of Breath (improved) Cardiovascular: Reports: No Symptoms Gastrointestinal: Reports: No Symptoms Genitourinary: Reports: No Symptoms Musculoskeletal: Reports: No Symptoms Skin: Reports: No Symptoms Neurological: Reports: No Symptoms Psychiatric: Reports: No Symptoms - Patient Data Vitals - Most Recent: Last Vital Signs Temp 36.3 C 09/11/17 10:00 Pulse 88 09/11/17 10:00 Resp 18 09/11/17 10:00 BP 143/70 H 09/11/17 10:00 Pulse Ox 98 09/11/17 10:00 Weight - Most Recent: 79.152 kg I&O - Last 24 Hours: Intake & Output 09/10/17 09/11/17 09/11/17 22:59 06:59 14:59 Intake Total 420 1709 300 Output Total 300 Balance 120 1709 300 Lab Results Last 24 Hours: Laboratory Results - last 24 hr 09/10/17 09/11/17 09/11/17 Range/Units 16:35 08:00 08:00 WBC 11.5 H (4.0-10.0) x10^3/uL RBC 3.93 L (4.00-5.50) x10^6/uL Hgb 11.8 L D (12.0-16.0) g/dL Hct 36.5 (33.0-47.0) % MCV 92.9 (78.0-93.0) fL MCH 30.0 (26.0-32.0) pg MCHC 32.3 (32.0-36.0) g/dL RDW Coeff of Sofy 13.2 (10.0-15.0) % Plt Count 195 (130-400) x10^3/uL Sodium 143 (136-145) mmol/L Potassium 3.7 (3.5-5.1) mmol/L Chloride 110 H (98-107) mmol/L Carbon Dioxide 21 (21-32) mmol/L BUN 15 (7-18) mg/dL Creatinine 1.2 H (0.55-1.02) mg/dL Est Cr Clr Drug Dosing 29.75 mL/min Estimated GFR (MDRD) 42 Glucose 163 H (74-106) mg/dL Lactic Acid 4.5 H* (0.4-2.0) mmol/L Calcium 8.4 L (8.5-10.1) mg/dL Corrected Calcium 8.96 (8.5-10.1) mg/dL Total Bilirubin 0.3 (0.2-1.0) mg/dL AST 16 (15-37) U/L ALT 20 (14-59) U/L Alkaline Phosphatase 101 (46-116) U/L Total Protein 6.4 (6.4-8.2) g/dL Albumin 3.3 L (3.4-5.0) g/dL Globulin 3.1 Albumin/Globulin Ratio 1.06 09/11/17 Range/Units 08:00 WBC (4.0-10.0) x10^3/uL RBC (4.00-5.50) x10^6/uL Hgb (12.0-16.0) g/dL Hct (33.0-47.0) % MCV (78.0-93.0) fL MCH (26.0-32.0) pg MCHC (32.0-36.0) g/dL RDW Coeff of Sofy (10.0-15.0) % Plt Count (130-400) x10^3/uL Sodium (136-145) mmol/L Potassium (3.5-5.1) mmol/L Chloride (98-107) mmol/L Carbon Dioxide (21-32) mmol/L BUN (7-18) mg/dL Creatinine (0.55-1.02) mg/dL Est Cr Clr Drug Dosing mL/min Estimated GFR (MDRD) Glucose (74-106) mg/dL Lactic Acid 5.3 H* (0.4-2.0) mmol/L Calcium (8.5-10.1) mg/dL Corrected Calcium (8.5-10.1) mg/dL Total Bilirubin (0.2-1.0) mg/dL AST (15-37) U/L ALT (14-59) U/L Alkaline Phosphatase (46-116) U/L Total Protein (6.4-8.2) g/dL Albumin (3.4-5.0) g/dL Globulin Albumin/Globulin Ratio Med Orders - Current: Current Medications Hydrocodone Bitart/Acetaminophen ([place] 325-5 Mg) 1 tab PO BEDTIME PRN PRN Reason: severe pain Last Admin: 09/11/17 00:16 Dose: 1 tab Albuterol/Ipratropium (Duoneb 3.0-0.5 Mg/3 Ml) 3 ml NEB Q4H [facility] Last Admin: 09/11/17 10:00 Dose: 3 ml Artificial Tears (Tears Naturale Free) 0 each EYEBOTH ASDIRECTED PRN PRN Reason: DRY EYES Last Admin: 09/11/17 00:17 Dose: 1 each Aspirin (Halfprin) 81 mg PO BEDTIME [facility] Last Admin: 09/10/17 20:19 Dose: 81 mg Benzonatate (Tessalon Perles) 100 mg PO TID PRN PRN Reason: Cough Last Admin: 09/11/17 08:52 Dose: 100 mg Carbidopa/Levodopa (Sinemet 10-100 Mg) 1 tab PO BEDTIME [facility] Last Admin: 09/10/17 20:19 Dose: 1 tab Docusate Sodium (Colace) 100 mg PO DAILY [facility] Last Admin: 09/11/17 07:26 Dose: 100 mg Sodium Chloride (Normal Saline) 1,000 mls @ 125 mls/hr IV ASDIRECTED [facility] Last Admin: 09/11/17 06:38 Dose: 125 mls/hr Ibuprofen (Motrin) 400 mg PO Q4H PRN PRN Reason: mild Pain Meclizine HCl (Antivert) 25 mg PO Q4HR PRN PRN Reason: Dizziness Mirtazapine (Remeron) 15 mg PO BEDTIME [facility] Last Admin: 09/10/17 20:19 Dose: 15 mg Omeprazole (Omeprazole) 20 mg PO DAILY@0700 [facility] Last Admin: 09/11/17 06:42 Dose: 20 mg Pramipexole Dihydrochloride (Mirapex) 1 mg PO BEDTIME [facility] Prednisone (Prednisone) 20 mg PO WITHBREAKFAST [facility] Last Admin: 09/11/17 07:26 Dose: 20 mg Prednisone (Prednisone) 5 mg PO DAILY [facility] Last Admin: 09/11/17 07:26 Dose: 5 mg Sodium Chloride (Saline Flush) 10 ml FLUSH ASDIRECTED PRN PRN Reason: Keep Vein Open Sodium Chloride (Saline Flush) 10 ml FLUSH ASDIRECTED PRN PRN Reason: Keep Vein Open Tiotropium [place] (Spiriva Handihaler) 18 mcg INH DAILY [facility] Last Admin: 09/11/17 10:18 Dose: 1 dose Discontinued Medications Albuterol/Ipratropium (Duoneb 3.0-0.5 Mg/3 Ml) 3 ml NEB ONETIME ONE Stop: 09/10/17 10:40 Last Admin: 09/10/17 10:44 Dose: 3 ml Albuterol/Ipratropium (Duoneb 3.0-0.5 Mg/3 Ml) 3 ml NEB ONETIME ONE Stop: 09/10/17 12:31 Last Admin: 09/10/17 12:26 Dose: 3 ml Albuterol/Ipratropium (Duoneb 3.0-0.5 Mg/3 Ml) 3 ml NEB Q4H PRN PRN Reason: dyspnea/wheezing Ceftriaxone Sodium (Rocephin) 1 gm IVPUSH ONETIME ONE Stop: 09/10/17 11:05 Last Admin: 09/10/17 11:21 Dose: 1 gm Ceftriaxone Sodium (Rocephin) 1 gm IVPUSH ONETIME ONE Stop: 09/10/17 11:45 Last Admin: 09/10/17 13:31 Dose: Not Given Ceftriaxone Sodium (Rocephin) 1 gm IVPUSH ONETIME ONE Stop: 09/11/17 09:55 Last Admin: 09/11/17 10:16 Dose: 1 gm Doxycycline Hyclate (Vibramycin) 100 mg PO ONETIME ONE Stop: 09/11/17 09:54 Last Admin: 09/11/17 10:18 Dose: 100 mg Vancomycin HCl 1,500 mg/ (Sodium Chloride) 250 mls @ 167 mls/hr IV ONETIME ONE Stop: 09/10/17 12:32 Last Admin: 09/10/17 11:44 Dose: Not Given Methylprednisolone Sodium Succinate (Solu-Medrol) 125 mg IVPUSH ONETIME ONE Stop: 09/10/17 11:55 Last Admin: 09/10/17 12:20 Dose: 125 mg Non-Formulary Medication (Calcium/Magnesium/Zinc [Calcium & Magnesium Plus Zinc] ) 2 tab PO DAILY [facility] Pramipexole Dihydrochloride (Mirapex) 1 mg PO DAILY [facility] Last Admin: 09/11/17 07:26 Dose: 1 mg - Exam Quality Assessment: Supplemental Oxygen General: Alert, Oriented, Cooperative, No Acute Distress HEENT: Pupils Equal, Pupils Reactive, EOMI Neck: Supple Lungs: Decreased Breath Sounds, Rales (bilateral lower lobes) Cardiovascular: Regular Rate, Regular Rhythm, Murmurs (systolic murmur) GI/Abdominal Exam: Normal Bowel Sounds, Soft, Non-Tender, No Organomegaly, No Distention, No Abnormal Bruit, No Mass, Pelvis Stable Extremities: Normal Inspection, Normal Range of Motion, Non-Tender, No Pedal Edema, Normal Capillary Refill Peripheral Pulses: 2+: Posterior Tibial (L), Posterior Tibial (R), Dorsalis Pedis (L), Dorsalis Pedis (R) Skin: Warm, Dry, Intact Neurological: No New Focal Deficit - Problem List & Annotations (1) Community acquired pneumonia SNOMED Code(s): 325377019 Code(s): J18.9 - PNEUMONIA, UNSPECIFIED ORGANISM Status: Acute Priority: Medium Current Visit: No Onset Date: Unknown Qualifiers: Lung location: unspecified part of lung Annotation/Comment:: resume oral and iv antibiotics hydration incentive spirometery ambulation wean oxygen (2) Emphysema of lung SNOMED Code(s): 26428465 Code(s): J43.9 - EMPHYSEMA, UNSPECIFIED Status: Acute Current Visit: Yes Qualifiers: Emphysema type: unspecified Qualified Code(s): J43.9 - Emphysema, unspecified Annotation/Comment:: continue iv solu-medrol start symbicort wean oxygen - Problem List Review Problem List Initiated/Reviewed/Updated: Yes - My Orders Last 24 Hours: My Active Orders 09/11/17 09:45 Tiotropium [Spiriva HandiHaler] 18 mcg INH DAILY 09/11/17 09:47 Chest 1V Frontal [CR] Routine 09/11/17 10:00 Chest 2V [CR] Routine - Assessment Assessment:: COPD community acquired pneumonia - Plan Plan:: 1. COPD continue iv solu-medrol start symbicort wean oxygen 2. CAP resume antibiotics - rocephin and doxycycline hydration incentive spirometry monitor WBC's and Lactic acid levels
[2017-09-11] MEDS: methylPREDNISolone Sodium Succinate 40 MG/1 ML SDV IVPUSH SCH ×3 (11:18→23:11)
[2017-09-11] MEDS: Pramipexole 0.5 MG Tab PO SCH (19:32)
[2017-09-11] MEDS: Aspirin 81 MG Tab.EC PO SCH (19:32)
[2017-09-11] MEDS: Carbidopa/Levodopa 10-100 MG Tab PO SCH (19:33)
[2017-09-11] MEDS: Mirtazapine 15 MG Tab PO SCH (19:33)
[2017-09-12] MEDS: Albuterol/Ipratropium 3.0-0.5 MG/3 ML Neb Soln NEB SCH ×6 (03:01→22:57)
[2017-09-12] MEDS: methylPREDNISolone Sodium Succinate 40 MG/1 ML SDV IVPUSH SCH ×2 (05:36→19:58)
[2017-09-12] MEDS: Omeprazole 20 MG Cap.CR PO SCH (06:07)
[2017-09-12] MEDS: Sodium Chloride 0.9% 1,000 ML IV SCH (06:28)
[2017-09-12] MEDS: predniSONE 20 MG Tab PO SCH (08:28)
[2017-09-12] MEDS: Docusate Sodium 100 MG Cap PO SCH (08:28)
[2017-09-12] MEDS: Tiotropium Inhaler 18 MCG Inhalation Powder Cap Kit of 5 INH SCH (08:28)
[2017-09-12] MEDS: predniSONE 5 MG Tab PO SCH (08:28)
[2017-09-12] MEDS: Albuterol 0.083% 2.5 MG/3 ML Neb Soln NEB PRN (08:39)
[2017-09-12] MEDS: cefTRIAXone 1 GM Vial IVPUSH SCH (09:41)
[2017-09-12] MEDS: Doxycycline 100 MG Cap PO SCH ×2 (09:41→19:57)
--- NOTE | 2017-09-12 11:17 | PN ---
Progress Note for JACQUE ENRIQUEZ Date: 09/12/2017 Room #: VM.214 SUBJECTIVE: This is hospital day #3 for an 87-year-old admitted to observation on 09/10/2017. She was significantly wheezy this morning and required nebulizers x3. She states she is started on a new medication for COPD, which was Spiriva, that has really helped. She was told she had asthma a couple of years ago. She has never smoked. She has been coughing for over a week, probably 10 days. She had called the clinic last week. There was some concern that she might have pneumonia, but she never came in for evaluation. Then, she got better and worse again on Tuesday night. She was significantly short of breath when she came in the ER, but she was not having any fevers and no chest pain. She continues to have coughing, but feels that it has improved. She has had wheezing off and on as well. Otherwise, she has been on Solu-Medrol 60 mg q.i.d. She takes long-term prednisone 5 mg. Her lactic acid was elevated up to 4.5, did go up to 5.3, but is down to 4.6 today. She states she has not been eating and drinking that good. White count did go up, but probably due to steroids. Otherwise, she is not currently requiring any oxygen. Chest x-ray repeated yesterday did show some developing infiltrate in the right base. OBJECTIVE: Vital Signs: Her temperature is 98.6, pulse 94, blood pressure 158/86, respiratory rate 16, and O2 93% on room air. General: She is in no acute distress. Heart: Irregularly irregular. Respiratory: Lungs sounds are fairly clear to auscultation currently without crackles or wheezes. Abdomen: Positive bowel sounds. Soft and nontender. Extremities: Warm and dry. No edema. Mental Status: She is alert. She is orientated x3. LABORATORY DATA: Her lab work, again, white count normal on admission at 6.5, up to 15.9; hemoglobin 12.2; and platelets 13.6. ASSESSMENT: 1. Right lower lobe pneumonia, community acquired, on IV Rocephin and oral doxycycline. We will continue with the same. 2. Asthma exacerbation with probable chronic obstructive pulmonary disease, now on Spiriva. I have added p.r.n. albuterol nebs. We will decrease her steroids to 40 b.i.d. We will do q.i.d. Accu-Cheks. 3. Lactic acidosis, presumably due to sepsis from the pneumonia. This appears to be improving. She is off IV fluids. We will repeat lab work tomorrow. 4. DVT prophylaxis. I am going to start her on some Lovenox today. 5. Irregular heartbeats. We will get an EKG and place her on telemetry. 6. Mood disorder. She will continue her Remeron. 7. Chronic pain. She takes hydrocodone at bedtime, if needed for back pain PLAN: The patient will continue acute cares with IV antibiotics, IV steroids, and nebulizers. Telemetry will be started. We will reassess tomorrow, but anticipate that she will need another night's stay. Therefore, she was upgraded from observation to acute care status. She is a code level 3. She has already been seen by PT and was moving around ok. MKA: 09/12/2017 10:48:23 MODL: 09/12/2017 11:09:45 /[id number] MTDD
[2017-09-12] MEDS ORDERED: methylPREDNISolone Sodium Succinate 125 MG/2 ML SDV IVPUSH SCH (11:30)
[2017-09-12] MEDS: Enoxaparin 40 MG/0.4 ML Syringe SUBCUT SCH (11:42)
--- NOTE | 2017-09-12 13:53 | PCM.PN ---
- General Info Date of Service: 09/12/17 Subjective Update: Pt. states that she is feeling better this morning. She states that her shortness of breath has improved. She does continue to cough and has been wheezing, according to nursing staff. She has been ambulating. She was feeling much better on day 2 and was hoping to be discharged. Her lactic acid and WBCs continued to be elevated, so she was kept another day. Her labs were also abnormal this morning, so she will be transitioned to acute care, as she will be past her 48 hour observation window today. Functional Status: Reports: Pain Controlled - Review of Systems General: Reports: No Symptoms HEENT: Reports: No Symptoms Pulmonary: Reports: Cough, Sputum Cardiovascular: Reports: No Symptoms Gastrointestinal: Reports: No Symptoms Genitourinary: Reports: No Symptoms Musculoskeletal: Reports: No Symptoms Skin: Reports: No Symptoms Neurological: Reports: No Symptoms Psychiatric: Reports: No Symptoms - Patient Data Vitals - Most Recent: Last Vital Signs Temp 37.0 C 09/12/17 10:00 Pulse 94 09/12/17 10:00 Resp 16 09/12/17 10:00 BP 158/86 H 09/12/17 10:00 Pulse Ox 93 L 09/12/17 10:00 Weight - Most Recent: 79.152 kg I&O - Last 24 Hours: Intake & Output 09/11/17 09/12/17 09/12/17 22:59 06:59 14:59 Intake Total 720 Balance 720 Lab Results Last 24 Hours: Laboratory Results - last 24 hr 09/12/17 Range/Units 11:04 POC Glucose 154 H (74-106) mg/dL Med Orders - Current: Current Medications Hydrocodone Bitart/Acetaminophen ([place] 325-5 Mg) 1 tab PO BEDTIME PRN PRN Reason: severe pain Last Admin: 09/11/17 00:16 Dose: 1 tab Albuterol (Proventil Neb Soln) 2.5 mg NEB Q4HRRT PRN PRN Reason: Cough Last Admin: 09/12/17 08:39 Dose: 2.5 mg Albuterol/Ipratropium (Duoneb 3.0-0.5 Mg/3 Ml) 3 ml NEB Q4H [place] Last Admin: 09/12/17 10:46 Dose: 3 ml Artificial Tears (Tears Naturale Free) 0 each EYEBOTH ASDIRECTED PRN PRN Reason: DRY EYES Last Admin: 09/11/17 00:17 Dose: 1 each Aspirin (Halfprin) 81 mg PO BEDTIME [facility] Last Admin: 09/11/17 19:32 Dose: 81 mg Benzonatate (Tessalon Perles) 100 mg PO TID PRN PRN Reason: Cough Last Admin: 09/11/17 08:52 Dose: 100 mg Carbidopa/Levodopa (Sinemet 10-100 Mg) 1 tab PO BEDTIME [facility] Last Admin: 09/11/17 19:33 Dose: 1 tab Ceftriaxone Sodium (Rocephin) 1 gm IVPUSH DAILY [facility] Last Admin: 09/12/17 09:41 Dose: 1 gm Docusate Sodium (Colace) 100 mg PO DAILY [facility] Last Admin: 09/12/17 08:28 Dose: 100 mg Doxycycline Hyclate (Vibramycin) 100 mg PO BID [facility] Last Admin: 09/12/17 09:41 Dose: 100 mg Enoxaparin Sodium (Lovenox) 40 mg SUBCUT DAILY@1100 [facility] Last Admin: 09/12/17 11:42 Dose: 40 mg Ibuprofen (Motrin) 400 mg PO Q4H PRN PRN Reason: mild Pain Meclizine HCl (Antivert) 25 mg PO Q4HR PRN PRN Reason: Dizziness Methylprednisolone Sodium Succinate (Solu-Medrol) 40 mg IVPUSH BID [facility] Mirtazapine (Remeron) 15 mg PO BEDTIME [facility] Last Admin: 09/11/17 19:33 Dose: 15 mg Omeprazole (Omeprazole) 20 mg PO DAILY@0700 [facility] Last Admin: 09/12/17 06:07 Dose: 20 mg Pramipexole Dihydrochloride (Mirapex) 1 mg PO BEDTIME [facility] Last Admin: 09/11/17 19:32 Dose: 1 mg Sodium Chloride (Saline Flush) 10 ml FLUSH ASDIRECTED PRN PRN Reason: Keep Vein Open Tiotropium [place] (Spiriva Handihaler) 18 mcg INH DAILY [facility] Last Admin: 09/12/17 08:28 Dose: 1 dose Discontinued Medications Albuterol/Ipratropium (Duoneb 3.0-0.5 Mg/3 Ml) 3 ml NEB ONETIME ONE Stop: 09/10/17 10:40 Last Admin: 09/10/17 10:44 Dose: 3 ml Albuterol/Ipratropium (Duoneb 3.0-0.5 Mg/3 Ml) 3 ml NEB ONETIME ONE Stop: 09/10/17 12:31 Last Admin: 09/10/17 12:26 Dose: 3 ml Albuterol/Ipratropium (Duoneb 3.0-0.5 Mg/3 Ml) 3 ml NEB Q4H PRN PRN Reason: dyspnea/wheezing Ceftriaxone Sodium (Rocephin) 1 gm IVPUSH ONETIME ONE Stop: 09/10/17 11:05 Last Admin: 09/10/17 11:21 Dose: 1 gm Ceftriaxone Sodium (Rocephin) 1 gm IVPUSH ONETIME ONE Stop: 09/10/17 11:45 Last Admin: 09/10/17 13:31 Dose: Not Given Ceftriaxone Sodium (Rocephin) 1 gm IVPUSH ONETIME ONE Stop: 09/11/17 09:55 Last Admin: 09/11/17 10:16 Dose: 1 gm Doxycycline Hyclate (Vibramycin) 100 mg PO ONETIME ONE Stop: 09/11/17 09:54 Last Admin: 09/11/17 10:18 Dose: 100 mg Vancomycin HCl 1,500 mg/ (Sodium Chloride) 250 mls @ 167 mls/hr IV ONETIME ONE Stop: 09/10/17 12:32 Last Admin: 09/10/17 11:44 Dose: Not Given Sodium Chloride (Normal Saline) 1,000 mls @ 125 mls/hr IV ASDIRECTED [facility] Last Admin: 09/12/17 06:28 Dose: 125 mls/hr Methylprednisolone Sodium Succinate (Solu-Medrol) 125 mg IVPUSH ONETIME ONE Stop: 09/10/17 11:55 Last Admin: 09/10/17 12:20 Dose: 125 mg Methylprednisolone Sodium Succinate (Solu-Medrol) 60 mg IVPUSH Q6H [facility] Last Admin: 09/12/17 05:36 Dose: 60 mg Methylprednisolone Sodium Succinate (Solu-Medrol) 60 mg IVPUSH Q6H [facility] Non-Formulary Medication (Calcium/Magnesium/Zinc [Calcium & Magnesium Plus Zinc] ) 2 tab PO DAILY [facility] Pramipexole Dihydrochloride (Mirapex) 1 mg PO DAILY [facility] Last Admin: 09/11/17 07:26 Dose: 1 mg Prednisone (Prednisone) 20 mg PO WITHBREAKFAST [facility] Last Admin: 09/12/17 08:28 Dose: 20 mg Prednisone (Prednisone) 5 mg PO DAILY [facility] Last Admin: 09/12/17 08:28 Dose: 5 mg - Exam General: Alert, Oriented HEENT: Pupils Equal, Pupils Reactive, EOMI, Mucous Membr. Moist/[place] Neck: Supple Lungs: Decreased Breath Sounds, Crackles, Rhonchi, Wheezing Cardiovascular: Regular Rate, Regular Rhythm GI/Abdominal Exam: Normal Bowel Sounds, Soft, Non-Tender, No Organomegaly, No Distention, No Abnormal Bruit, No Mass, Pelvis Stable (Female) Exam: Deferred Back Exam: Normal Inspection, Full Range of Motion Extremities: Normal Inspection, Normal Range of Motion, Non-Tender, No Pedal Edema, Normal Capillary Refill Peripheral Pulses: 2+: Radial (L), Radial (R) Skin: Warm, Dry, Intact Neurological: No New Focal Deficit Psy/Mental Status: Alert, Normal Affect, Normal Mood - Problem List Review Problem List Initiated/Reviewed/Updated: Yes - My Orders Last 24 Hours: My Active Orders 09/12/17 09:34 Consult to Physical Therapy [PT Evaluation and Treatment] [CONS] Routine Pt. will be moved from observation to acute. I contacted Dr. Zhang, the on-call physician at [facility], as the pt. uses Yanci Guillen PA-C for her PCP. Dr. Zhang stated that Dr. Guillen is already aware of the pt. and will be following the pt. - Assessment Assessment:: COPD community acquired pneumonia - Plan Plan:: 1. COPD continue iv solu-medrol start symbicort wean oxygen 2. CAP resume antibiotics - rocephin and doxycycline hydration incentive spirometry monitor WBC's and Lactic acid levels
[2017-09-12] MEDS: Aspirin 81 MG Tab.EC PO SCH (19:57)
[2017-09-12] MEDS: Pramipexole 0.5 MG Tab PO SCH (19:57)
[2017-09-12] MEDS: Mirtazapine 15 MG Tab PO SCH (19:57)
[2017-09-12] MEDS: Carbidopa/Levodopa 10-100 MG Tab PO SCH (19:58)
[2017-09-13] MEDS: Albuterol/Ipratropium 3.0-0.5 MG/3 ML Neb Soln NEB SCH ×2 (03:13→07:07)
[2017-09-13] MEDS: Omeprazole 20 MG Cap.CR PO SCH (06:29)
[2017-09-13] MEDS: methylPREDNISolone Sodium Succinate 40 MG/1 ML SDV IVPUSH SCH (07:47)
[2017-09-13] MEDS: cefTRIAXone 1 GM Vial IVPUSH SCH (07:47)
[2017-09-13] MEDS: Docusate Sodium 100 MG Cap PO SCH (07:48)
[2017-09-13] MEDS: Doxycycline 100 MG Cap PO SCH ×2 (07:48→20:05)
[2017-09-13] MEDS: Tiotropium Inhaler 18 MCG Inhalation Powder Cap Kit of 5 INH SCH (07:49)
[2017-09-13] MEDS: Benzonatate 100 MG Cap PO PRN ×2 (09:34→22:24)
[2017-09-13] MEDS: Enoxaparin 40 MG/0.4 ML Syringe SUBCUT SCH (10:36)
[2017-09-13] MEDS: predniSONE 20 MG Tab PO SCH (11:13)
--- NOTE | 2017-09-13 12:11 | PN ---
Progress Note for JACQUE ENRIQUEZ Date: 09/13/2017 Room #: VM.214 SUBJECTIVE: This is hospital acute stay day #2. She was on observation for 2 days prior. She still continues to have wheezing and coughing. Otherwise, she is not feeling short of breath. She has been afebrile. Lab work has improved, but her lactic acid remains elevated. She denies any alcohol use at home. Her kidney function is stable. She is eating and drinking okay. She is getting scheduled nebulizers. She is getting IV Solu-Medrol and IV Rocephin. OBJECTIVE: Vital Signs: On exam, her temperature is 98.2, pulse 87, blood pressure 134/76, respiratory rate 18, and O2 of 93 on room air. General: She is in no acute distress. Heart: Regular rate and rhythm. Yesterday, she had an EKG which showed sinus with PACs otherwise. Lungs: lung sounds today, I do appreciate some wheezing, especially over the right lung, expiratory. Inspiratory is clear. Abdomen: Nondistended and nontender. Extremities: Warm and dry. No edema. Mental Status: Alert and orientated x3. LABORATORY DATA: Lab work shows white count still up at 15.8, hemoglobin 11.3, and platelets 191. Sodium 145; potassium 4.4; chloride 111; bicarbonate 24; BUN 19; creatinine 1.2; and glucose has been up to 209, but it is 156 this morning. ASSESSMENT: 1. Community-acquired pneumonia, right lower lobe. Thus far, cultures have been negative. We will stop the IV Rocephin. She did get a dose this morning. Continue her on oral doxycycline and complete one more day of Ceftin. 2. Asthma exacerbation with probable underlying chronic obstructive pulmonary disease, improved on Spiriva. We will get this ordered at her local pharmacy for her. We will stop scheduled nebs and see if she needs the p.r.n. nebs to decide on discharge medications. We will decrease her steroids from IV Solu-Medrol to oral. 3. Lactic acidosis. Originally due to sepsis, but this persists. We will look into other causes, but she had the same thing last February as well. 4. Deep venous thrombosis prophylaxis. She is on Lovenox. 5. Irregular heartbeat, sinus, with premature atrial contractions. No events on telemetry. We will discontinue it. 6. Chronic pain from back pain. She uses p.r.n. hydrocodone. She did not use any last night. 7. Mood disorder, on Remeron. PLAN: At this point, the patient will continue acute cares. I will stop IV antibiotics and IV steroids. We will change nebulizers to p.r.n. We will get her up and moving more in the hallway. She is still having some coughing and wheezing, so I am a little hesitant to discharge her home today, especially when she is just coming off IV treatments. Anticipate that she will be discharged home tomorrow. We will also repeat lab work in the morning. MKA: 09/13/2017 11:09:33 MODL: 09/13/2017 12:00:28 /[id number]
[2017-09-13] MEDS: Albuterol 0.083% 2.5 MG/3 ML Neb Soln NEB PRN (14:50)
[2017-09-13] MEDS: Cefuroxime 250 MG Tab PO SCH (20:05)
[2017-09-13] MEDS: Pramipexole 0.5 MG Tab PO SCH (20:05)
[2017-09-13] MEDS: Carbidopa/Levodopa 10-100 MG Tab PO SCH (20:05)
[2017-09-13] MEDS: Aspirin 81 MG Tab.EC PO SCH (20:05)
[2017-09-13] MEDS: Mirtazapine 15 MG Tab PO SCH (20:05)
[2017-09-14] MEDS: Albuterol 0.083% 2.5 MG/3 ML Neb Soln NEB PRN ×2 (00:24→07:11)
[2017-09-14] MEDS: Acetaminophen/HYDROcodone 325-5 MG Tab PO PRN (02:02)
[2017-09-14] MEDS: Omeprazole 20 MG Cap.CR PO SCH (06:19)
[2017-09-14] MEDS: Benzonatate 100 MG Cap PO PRN (06:22)
[2017-09-14] MEDS: Tiotropium Inhaler 18 MCG Inhalation Powder Cap Kit of 5 INH SCH (07:34)
[2017-09-14] MEDS: Cefuroxime 250 MG Tab PO SCH (07:36)
[2017-09-14] MEDS: predniSONE 20 MG Tab PO SCH (07:38)
[2017-09-14] MEDS: Docusate Sodium 100 MG Cap PO SCH (07:38)
[2017-09-14] MEDS: Doxycycline 100 MG Cap PO SCH (07:39)
[2017-09-14 10:37] VITALS: BP 147/62
[2017-09-14] MEDS: Enoxaparin 40 MG/0.4 ML Syringe SUBCUT SCH (10:46)
--- NOTE | 2017-09-16 08:23 | DISCH ---
Date of admission initially to observation was 09/10/2017. PRIMARY DISCHARGE DIAGNOSES: 1. Right lower lobe community-acquired pneumonia, cultures negative. Chest x- ray was improving on discharge. 2. Acute asthma and chronic obstructive pulmonary disease exacerbation, improving with Spiriva, likely due to pneumonia. The patient likely has mild persistent asthma as an outpatient. 3. Lactic acidosis. Lactic chronically elevated. Could be due to increased work of breathing versus potential albuterol use. However, she was not using it significantly before admission. The patient denies any alcohol abuse. She otherwise had a lactic that trended down to 3.3 on discharge. 4. Deep vein thrombosis prophylaxis. She was given Lovenox. 5. History of anxiety and depression. She is on Remeron. She was a little bit tearful sometimes about her coughing, but this seemed to be improved, and she had better moods upon discharge. 6. Irregular heartbeats. EKG showed sinus with premature atrial contractions. Telemetry did not show any arrhythmias. 7. Chronic back pain. She uses infrequent hydrocodone. REASON FOR ADMISSION: On the date of admission, this 87-year-old female had increased wheezing, shortness of breath, and coughing. She had been ill for over 1 week. HOSPITAL COURSE: She came in, was receiving IV Solu-Medrol, nebulizers, and IV Rocephin. She continued to have coughing and wheezing. She remained on observation, but then on the morning of 09/12/2017, she had increased wheezing, had nebulizers x3, and recommendations were made for her to upgrade to acute cares. Her lactic acid, which was initially elevated up to 5.3 at one point, did trend down. There was a concern early on that she was possibly having sepsis, but her white count was 6.5. Her creatinine was up to 1.3 and it did go down to 1.2, and she did receive some IV fluids. White count did go up to 15.9, likely due to the IV steroids. She was tapered down from 60 q.i.d. to 20 b.i.d. and eventually on 20 mg of oral prednisone daily on discharge. She was treated with IV Rocephin, which was switched over to oral Ceftin yesterday. She was also tolerating oral doxycycline. She has received a total of 5 days of antibiotics, but will go home on 2 more days of doxycycline due to her persistent cough. She also seemed to get good relief from the Tessalon Perles. She did also use a hydrocodone and nebulizers during the night due to coughing, and she will have these available on discharge. Inhaler teaching was given by the nurse. She did spike a slight 100.2 temp on the morning of discharge, but this was improving, and she was not feeling any fever or chills. Lungs sounds were showing some rhonchi and wheezing, but repeat chest x-ray was improving, and the patient otherwise was feeling okay. PHYSICAL EXAMINATION: Vital Signs: Discharge vitals; temp 100, pulse 65, blood pressure 147/62, respiratory rate 20, and O2 94% on room air. General: She is in no acute distress. Heart: Regular rate and rhythm with extra beats. Respiratory: Lungs sounds are decreased with some rhonchi and expiratory wheezing over the right base. Left lung also has some wheezing. Abdomen: Soft and nontender. Extremities: Warm and dry. No edema. Mental Status: She is alert and orientated x3. DISCHARGE PLANS AND INSTRUCTIONS: She will follow up with Yanci Guillen in the clinic in 1 to 2 weeks for post-hospital followup. 1. She will be on Spiriva on discharge for 1 more dose tomorrow, but then changed to an Incruse inhaler due to insurance coverage at the pharmacy. This was instructed to her and inhaler teaching can be performed by Home Health. 2. 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 3. Doxycycline 100 twice daily for 2 more days. She will have nebulizers available at home, along with Tessalon Perles for cough. She will try a B- complex vitamin as this may also help with her lactic acid levels. This can be considered to be repeated as an outpatient by Yanci Guillen for further followup, but the patient had similar findings back in February as well with lactic acids. Addendum to Home Health: The patient is homebound and was seen [id number] by me on 09/14/2017. She requires nursing to assess and teach her how to use new inhalers for a new diagnosis of COPD and also monitor her vital signs and respiratory status. She was seen by PT and did well in the hospital, so no therapy services were ordered on discharge, but she is homebound due to her increased work of breathing, she does require assist of another person to leave her home. Given her coughing and wheezing, it is better that she is not out in public anyway for the next week or so. I will periodically review this plan of care. Greater than 30 minutes was spent on the discharge process. MKA: 09/14/2017 11:53:21 MODL: 09/15/2017 08:43:33 /[id number]
== END 2017-09-14 12:15 | disposition home health service (06) | DRG 190 ==
LOC: VM.ED 10:31 → INTOOBSV 12:51 → VM.MS 12:51 → OBSVTOIN 09-12 09:30
PROVIDERS: ADMIT Internal Medicine; ATTEND Internal Medicine
DX: R06.03 Acute respiratory distress (principal); R09.02 Hypoxemia; R06.2 Wheezing; J45.909 Unspecified asthma, uncomplicated; J44.0 Chronic obstructive pulmonary disease with (acute) lower respiratory infection; J18.9 Pneumonia, unspecified organism; J45.901 Unspecified asthma with (acute) exacerbation; E87.2 Acidosis; J44.1 Chronic obstructive pulmonary disease with (acute) exacerbation; J43.9 Emphysema, unspecified; Z87.01 Personal history of pneumonia (recurrent); F32.9 Major depressive disorder, single episode, unspecified; F41.9 Anxiety disorder, unspecified; G89.29 Other chronic pain; M54.9 Dorsalgia, unspecified; Z88.2 Allergy status to sulfonamides; Z88.8 Allergy status to other drugs, medicaments and biological substances; Z79.82 Long term (current) use of aspirin; Z79.899 Other long term (current) drug therapy; H91.90 Unspecified hearing loss, unspecified ear; H54.7 Unspecified visual loss; E78.00 Pure hypercholesterolemia, unspecified; K21.9 Gastro-esophageal reflux disease without esophagitis; M19.90 Unspecified osteoarthritis, unspecified site; G25.81 Restless legs syndrome; M85.80 Other specified disorders of bone density and structure, unspecified site
CPT/HCPCS: 36415 ×3; 71046 ×2; 80053 ×2; 83605 ×5; 83880; 85025 ×2; 85027; 87040 ×2; 93005; 94640 ×10; 94760; 96374; 96375; 99285; A9270 ×22; J0696 ×2; J2920 ×4; J2930; J7030 ×6; J7620; 80048; 82962; 97161-GP; J1650; J3370; J7050

== ENCOUNTER 2018-01-24 08:52 | Emergency (ER) | payer MEDICARE, OTHER ==
[2018-01-24] MEDS ORDERED: Sodium Chloride 0.9% 10 ML Syringe FLUSH PRN (09:13)
[2018-01-24] MEDS ORDERED: Lactated Ringers 1,000 ML IV SCH (09:15)
[2018-01-24 10:14] LABS: CHLORIDE,CL 106 mmol/L (98-107); SODIUM,NA 140 mmol/L (136-145)
[2018-01-24 10:15] LABS: ANION GAP 12.6 mmol/L (10-20)
[2018-01-24] MEDS ORDERED: Lactated Ringers 500 ML IV SCH (10:45)
[2018-01-24] MEDS ORDERED: cefTRIAXone 2 GM Vial IVPUSH ONE (11:19)
[2018-01-24 14:02] VITALS: BP 142/80
--- NOTE | 2018-01-24 18:42 | EDM.PDOC ---
ED HPI GENERAL MEDICAL PROBLEM - General Chief Complaint: Syncope Stated Complaint: ER Time Seen by Provider: 01/24/18 09:05 Source of Information: Reports: Patient History Limitations: Reports: No Limitations - History of Present Illness INITIAL COMMENTS - FREE TEXT/NARRATIVE: Pt. presents to ER with complaints of fatigue, weakness, and chills. She states that she has been experiencing this for several days. She states that she thinks she has not been drinking enough water. She denies any chest pain or shortness of breath. No weakness. No nausea, vomiting, or diarrhea. Pt. states that has had not cough or sore throat. No rashes. She denies any dysuria. Duration: Constant Location: Reports: Generalized - Related Data Allergies Allergy/AdvReac Type Severity Reaction Status Date / Time atorvastatin calcium AdvReac Body Aches Verified 09/10/17 10:58 [From Lipitor] codeine AdvReac Change Verified 09/10/17 10:58 Mental Status Fish Containing Products AdvReac Nausea Verified 09/13/17 09:48 milk AdvReac Nausea and Verified 01/24/18 09:20 Vomiting Sulfa (Sulfonamide AdvReac Nausea Verified 09/10/17 10:58 Antibiotics) Home Meds: Home Meds Carbidopa/Levodopa [Sinemet 10-100 mg] 1 tab PO BEDTIME 09/10/15 [History] Pramipexole [Mirapex] 1 mg PO DAILY 03/05/17 [History] Propylene Glycol [Systane Balance] 1 drop EYEBOTH ASDIRECTED PRN 03/05/17 [ History] predniSONE 5 mg PO DAILY 03/05/17 [History] Aspirin [Halfprin] 81 mg PO BEDTIME tab.ec 03/07/17 [Rx] Non-Formulary Medication [NF Drug] 1 tab PO DAILY PRN 04/25/17 [History] Albuterol [Ventolin HFA] 2 puff IH Q4H PRN 09/10/17 [History] Mirtazapine 15 mg PO BEDTIME 09/10/17 [History] Omeprazole 20 mg PO DAILY 09/10/17 [History] Albuterol [IJD: Albuterol] 2.5 mg NEB Q4HRRT PRN #30 nebule 09/14/17 [Rx] Tiotropium [Spiriva HandiHaler] 18 mcg INH DAILY #1 cap 09/14/17 [Rx] Acetaminophen [Pain Reliever] 650 mg PO Q6H PRN 01/24/18 [History] Cholecalciferol (Vitamin D3) [Vitamin D3] 1,000 units PO DAILY 01/24/18 [History ] Sennosides/Docusate Sodium [Sennosides-Docusate Sodium] 2 each PO DAILY [History] Vitamin B Complex & Vit C No.3 [B Complex with Vitamin C] 1 each PO DAILY [History] Past Medical History HEENT History: Reports: Cataract, Hard of Hearing, Impaired Vision, Other (See Below) Other HEENT History: lesion of lower eyelid. labyrinthitis Cardiovascular History: Reports: High Cholesterol Respiratory History: Reports: Asthma Other Respiratory History: HX OF PNUEMONIA Gastrointestinal History: Reports: Chronic Constipation, GERD, Other (See Below) Other Gastrointestinal History: taste sense altered. 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 restless leg syndrome. hx right hand numbness. 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 Endocrine/Metabolic History: Reports: Osteopenia Hematologic History: Reports: None Immunologic History: Reports: None Oncologic (Cancer) History: Reports: Basal Cell Carcinoma, Breast Other Oncologic History: SKIN CA ON BACK Dermatologic History: Reports: None - Past Surgical History Head Surgeries/Procedures: Reports: None HEENT Surgical History: Reports: Cataract Surgery, Tonsillectomy Cardiovascular Surgical History: Reports: None Respiratory Surgical History: Reports: None GI Surgical History: Reports: Appendectomy, Colonoscopy Female Surgical History: Reports: Hysterectomy, Other (See Below) Other Female Surgeries/Procedures: breast lumpectomy Endocrine Surgical History: Reports: Thyroid Biopsy Neurological Surgical History: Reports: None Musculoskeletal Surgical History: Reports: Carpal Tunnel, Other (See Below) Other Musculoskeletal Surgeries/Procedures:: right 3rd digit & left thumb trigger finger release Oncologic Surgical History: Reports: Biopsy of Breast, Lumpectomy Dermatological Surgical History: Reports: None Social & Family History - Family History Family Medical History: Noncontributory - Tobacco Use Smoking Status *Q: Never Smoker - Caffeine Use Caffeine Use: Reports: Coffee ED ROS GENERAL - Review of Systems Review Of Systems: See Below Constitutional: Reports: Chills, Malaise, Weakness, Fatigue HEENT: Reports: No Symptoms Respiratory: Reports: No Symptoms Cardiovascular: Reports: No Symptoms Endocrine: Reports: No Symptoms GI/Abdominal: Reports: No Symptoms : Reports: No Symptoms Musculoskeletal: Reports: No Symptoms Skin: Reports: No Symptoms Neurological: Reports: No Symptoms Psychiatric: Reports: No Symptoms Hematologic/Lymphatic: Reports: No Symptoms Immunologic: Reports: No Symptoms ED EXAM, GENERAL - Physical Exam Exam: See Below Exam Limited By: No Limitations General Appearance: Alert, WD/WN, No Apparent Distress Eye Exam: Bilateral Eye: EOMI, Normal Fundi, Normal Inspection, PERRL Ears: Normal External Exam, Normal Canal, Hearing Grossly Normal, Normal TMs Ear Exam: Bilateral Ear: Auricle Normal, Canal Normal, TM normal Nose: Normal Inspection, Normal Mucosa, No Blood Throat/Mouth: Normal Inspection, Normal Lips, Normal Teeth, Normal Gums, Normal Oropharynx, Normal Voice, No Airway Compromise Head: Atraumatic, Normocephalic Neck: Normal Inspection, Supple, Non-Tender, Full Range of Motion Respiratory/Chest: No Respiratory Distress, Lungs Clear, Normal Breath Sounds, No Accessory Muscle Use, Chest Non-Tender Cardiovascular: Normal Peripheral Pulses, Regular Rate, Rhythm, No Edema, No Gallop, No JVD, No Murmur, No Rub Peripheral Pulses: 4+: Radial (L), Radial (R) GI/Abdominal: Normal Bowel Sounds, Soft, Non-Tender, No Organomegaly, No Distention, No Abnormal Bruit, No Mass (Female) Exam: Deferred Rectal (Female) Exam: Deferred Back Exam: Normal Inspection, Full Range of Motion, NT Extremities: Normal Inspection, Normal Range of Motion, Non-Tender, Normal Capillary Refill, No Pedal Edema Neurological: Alert, Oriented, CN II-XII Intact, Normal Cognition, Normal Gait, Normal Reflexes, No Motor/Sensory Deficits Psychiatric: Normal Affect, Normal Mood Skin Exam: Warm, Dry, Intact, Normal Color, No Rash Lymphatic: No Adenopathy EKG INTERPRETATION Rhythm: NSR [place]: Normal P-Wave: Present QRS: Normal ST-T: Normal QT: Normal Course - Vital Signs Last Recorded V/S: Last Vital Signs Temp 35.8 C 01/24/18 09:20 Pulse 82 01/24/18 11:30 Resp 16 01/24/18 11:30 BP 142/80 H 01/24/18 11:30 Pulse Ox 98 01/24/18 11:30 - Orders/Labs/Meds Orders: Active Orders 24 hr Category Date Time Status EKG Documentation Completion [RC] STAT Care 01/24/18 09:13 Active Peripheral IV Insertion Adult [OM.PC] Routine Oth 01/24/18 09:14 Ordered Labs: Laboratory Tests 01/24/18 01/24/18 01/24/18 Range/Units 09:38 09:38 09:38 WBC 7.0 (4.0-10.0) x10^3/uL RBC 4.02 (4.00-5.50) x10^6/uL Hgb 12.0 (12.0-16.0) g/dL Hct 37.3 (33.0-47.0) % MCV 92.8 (78.0-93.0) fL MCH 29.9 (26.0-32.0) pg MCHC 32.2 (32.0-36.0) g/dL RDW Coeff of Sofy 13.1 (10.0-15.0) % Plt Count 197 (130-400) x10^3/uL Neut % (Auto) 78.0 (50.0-80.0) % Lymph % (Auto) 13.5 L (25.0-50.0) % [place] % (Auto) 6.7 (2.0-11.0) % Eos % (Auto) 1.7 (0.0-4.0) % Baso % (Auto) 0.1 L (0.2-1.2) % PT 10.4 (9.6-11.4) SEC INR 1.0 L (2.0-3.5) Sodium 140 (136-145) mmol/L Potassium 4.6 (3.5-5.1) mmol/L Chloride 106 (98-107) mmol/L Carbon Dioxide 26 (21-32) mmol/L Anion Gap 12.6 (10-20) mmol/L BUN 14 (7-18) mg/dL Creatinine 1.1 H (0.55-1.02) mg/dL Est Cr Clr Drug Dosing 35.60 mL/min Estimated GFR (MDRD) 47 Glucose 141 H (74-106) mg/dL Calcium 8.5 (8.5-10.1) mg/dL Corrected Calcium 8.98 (8.5-10.1) mg/dL Phosphorus 3.0 (2.6-4.7) mg/dL Magnesium 1.9 (1.8-2.4) mg/dL Total Bilirubin 0.5 (0.2-1.0) mg/dL AST 18 (15-37) U/L ALT 22 (14-59) U/L Alkaline Phosphatase 84 (46-116) U/L Troponin I < 0.017 (<=0.056) ng/mL C-Reactive Protein < 0.2 (<=0.9) mg/dL Total Protein 6.6 (6.4-8.2) g/dL Albumin 3.4 (3.4-5.0) g/dL Globulin 3.2 Albumin/Globulin Ratio 1.06 TSH, Ultra Sensitive 1.975 (0.358-3.74) uIU/mL Urine Color (YELLOW) Urine Appearance (CLEAR) Urine pH (5.0-8.0) Ur Specific [place] Urine Protein (NEGATIVE) mg/dL Urine Glucose (UA) (NEGATIVE) mg/dL Urine Ketones (NEGATIVE) mg/dL Urine Occult Blood (NEGATIVE) Urine Nitrite (NEGATIVE) Urine Bilirubin (NEGATIVE) Urine Urobilinogen (0.2) EU/dL Ur Leukocyte Esterase (NEGATIVE) Urine RBC (NOT SEEN) /HPF Urine WBC (NOT SEEN) /HPF Ur Squamous Epith Cells (NEGATIVE) /HPF Urine Bacteria (NEGATIVE) /HPF Urine Mucus (NEGATIVE) /LPF 01/24/ Range/Units 10:35 WBC (4.0-10.0) x10^3/uL RBC (4.00-5.50) x10^6/uL Hgb (12.0-16.0) g/dL Hct (33.0-47.0) % MCV (78.0-93.0) fL MCH (26.0-32.0) pg MCHC (32.0-36.0) g/dL RDW Coeff of [place] (10.0-15.0) % Plt Count (130-400) x10^3/uL Neut % (Auto) (50.0-80.0) % Lymph % (Auto) (25.0-50.0) % [place] % (Auto) (2.0-11.0) % Eos % (Auto) (0.0-4.0) % Baso % (Auto) (0.2-1.2) % PT (9.6-11.4) SEC INR (2.0-3.5) Sodium (136-145) mmol/L Potassium (3.5-5.1) mmol/L Chloride (98-107) mmol/L Carbon Dioxide (21-32) mmol/L Anion Gap (10-20) mmol/L BUN (7-18) mg/dL Creatinine (0.55-1.02) mg/dL Est Cr Clr Drug Dosing mL/min Estimated GFR (MDRD) Glucose (74-106) mg/dL Calcium (8.5-10.1) mg/dL Corrected Calcium (8.5-10.1) mg/dL Phosphorus (2.6-4.7) mg/dL Magnesium (1.8-2.4) mg/dL Total Bilirubin (0.2-1.0) mg/dL AST (15-37) U/L ALT (14-59) U/L Alkaline Phosphatase (46-116) U/L Troponin I (<=0.056) ng/mL C-Reactive Protein (<=0.9) mg/dL Total Protein (6.4-8.2) g/dL Albumin (3.4-5.0) g/dL Globulin Albumin/Globulin Ratio TSH, Ultra Sensitive (0.358-3.74) uIU/mL Urine Color Yellow (YELLOW) Urine Appearance Cloudy H (CLEAR) Urine pH 7.0 (5.0-8.0) Ur Specific [place] 1.015 Urine Protein Negative (NEGATIVE) mg/dL Urine Glucose (UA) Negative (NEGATIVE) mg/dL Urine Ketones Negative (NEGATIVE) mg/dL Urine Occult Blood Trace-intact H (NEGATIVE) Urine Nitrite Positive H (NEGATIVE) Urine Bilirubin Negative (NEGATIVE) Urine Urobilinogen 0.2 (0.2) EU/dL Ur Leukocyte Esterase Small H (NEGATIVE) Urine RBC 0-5 (NOT SEEN) /HPF Urine WBC 10-20 H (NOT SEEN) /HPF Ur Squamous Epith Cells Few H (NEGATIVE) /HPF Urine Bacteria Many H (NEGATIVE) /HPF Urine Mucus Not seen (NEGATIVE) /LPF Meds: Medications Discontinued Medications Generic Name Dose Route Start Last Admin Trade Name Freq PRN Reason Stop Dose Admin Ceftriaxone Sodium 2 gm 01/24/18 11:19 01/24/18 11:33 Rocephin IVPUSH 01/24/18 11:20 2 gm STAT ONE Administration Lactated Ringer's 1,000 mls @ 500 mls/hr 01/24/18 09:15 01/24/18 09:19 Ringers, Lactated IV 500 mls/hr ASDIRECTED CRYSTAL Administration Lactated Ringer's 500 mls @ 500 mls/hr 01/24/18 10:45 01/24/18 10:51 Ringers, Lactated IV 500 mls/hr ASDIRECTED CRYSTAL Administration Sodium Chloride 10 ml 01/24/18 09:13 Saline Flush FLUSH ASDIRECTED PRN Keep Vein Open Departure - Departure Time of Disposition: 11:30 Disposition: Home, Self-Care 01 Condition: Good Clinical Impression: UTI (urinary tract infection) - Discharge Information Instructions: Dehydration, Adult, [id number], Urinary Tract Infection, Adult Referrals: Masood Zhang MD [Primary Care Provider] - Forms: ED Department Discharge Additional Instructions: Macrobid 100mg twice daily for 5 days. Continue with current medications. Drink plenty of fluids. Follow-up in clinic in 10-14 days for recheck. - My Orders Last 24 Hours: My Active Orders 01/24/18 09:13 EKG Documentation Completion [RC] STAT 01/24/18 09:14 Peripheral IV Insertion Adult [OM.PC] Routine - Assessment/Plan Last 24 Hours: My Active Orders 01/24/18 09:13 EKG Documentation Completion [RC] STAT 01/24/18 09:14 Peripheral IV Insertion Adult [OM.PC] Routine
== END 2018-01-24 11:30 | disposition home or self-care (01) ==
LOC: VM.ED 08:52
DX: N39.0 Urinary tract infection, site not specified (principal); Z88.5 Allergy status to narcotic agent; Z88.2 Allergy status to sulfonamides; Z91.011 Allergy to milk products
CPT/HCPCS: 36415; 80053; 81001; 83735; 84100; 84443; 84484; 85025; 85610; 86140; 93005; 96361; 96374; 99284-GF; 99285; J0696; J7120